=== PATIENT | female | born 1985 | race Native Hawaiian/Other Pacific Islander ===

== ENCOUNTER 2016-10-02 09:06 | Outpatient (CLI) | payer BC | END 2016-10-02 19:19 | disposition home or self-care (01) | LOC: US 09:06 | DX: C56.1 Malignant neoplasm of right ovary (principal) ==

== ENCOUNTER 2020-12-22 08:23 | Outpatient (CLI) | payer BC, OTHER | END 2020-12-22 22:37 | disposition home or self-care (01) | LOC: INF 08:23 | PROVIDERS: ATTEND Internal Medicine | DX: Z23 Encounter for immunization (principal) | CPT/HCPCS: 96372 ==

== ENCOUNTER 2021-01-13 08:25 | Outpatient (CLI) | payer BC, OTHER | END 2021-01-13 19:33 | disposition home or self-care (01) | LOC: INF 08:25 | PROVIDERS: ATTEND Internal Medicine | DX: Z23 Encounter for immunization (principal) | CPT/HCPCS: 96372 ==